=== PATIENT | female | born 1975 | race Caucasian/White ===

== ENCOUNTER 2024-01-26 12:12 | Emergency (ER) | payer OTHER ==
[2024-01-26 12:28] VITALS: RESP 18; BMI 31.0
[2024-01-26] MEDS ORDERED: ONDANSETRON *ODT* 4 MG TABLET ONE (12:34)
[2024-01-26] MEDS: ONDANSETRON *ODT* 4 MG TABLET SL ONE (12:35)
[2024-01-26] MEDS ORDERED: FAMOTIDINE 20 MG/50 ML IVPB 20 MG/50 ML MG IVPB ONE (13:22)
[2024-01-26] MEDS ORDERED: ACETAMINOPHEN INJECTION 100 ML IVPB ONE (13:22)
[2024-01-26 13:32] LABS: HEMATOCRIT 46.7 % (32.4-45.2); HEMOGLOBIN 15.5 G/dL (10.7-15.3); MCHC 33.3 g/dl (32.0-36.0); MEAN CELL VOLUME 93.2 fl (80-96); MEAN PLT VOLUME 8.8 fl (7.5-11.1); PLATELET COUNT 193.9 10^3/uL (134-434); RBC 5.01 10^6/uL (3.60-5.2); RDW 13.6 % (11.6-15.6); WHITE BLOOD COUNT 7.7 10^3/uL (4.0-10.8)
[2024-01-26 13:35] LABS: HCG,QUALITATIVE URINE Negative
[2024-01-26] MEDS: SODIUM CHLORIDE 0.9% 500 ML INFUS.BAG IV ONE ×2 (13:35→15:49)
[2024-01-26] MEDS: ACETAMINOPHEN 1000 MG/100 ML BAG IVPB ONE (13:38)
[2024-01-26 13:42] LABS: ALBUMIN 4.4 g/dl (3.4-5.0); BILIRUBIN,TOTAL 1.1 mg/dl (0.2-1); CALCIUM 9.5 mg/dl (8.5-10.1); CREATININE 0.7 mg/dl (0.6-1.3); MAGNESIUM 1.9 mg/dL (1.8-2.4); PLATELET ESTIMATE ADEQUATE; POTASSIUM 4.2 mmol/L (3.5-5.1); TOT PROT 6.8 g/dl (6.4-8.2)
[2024-01-26] MEDS: FAMOTIDINE 20 MG/50 ML IVPB 20 MG/50 ML MG IVPB ONE (13:58)
[2024-01-26 15:48] VITALS: BP 105/74; PULSE 91; TEMP 99.3
== END 2024-01-26 16:28 | disposition home or self-care (01) ==
LOC: FER 12:12
PROC: 3E033GC Introduction of Other Therapeutic Substance into Peripheral Vein, Percutaneous Approach (ICD-10-PCS; principal; 2024-01-26)
PROC: 3E033NZ Introduction of Analgesics, Hypnotics, Sedatives into Peripheral Vein, Percutaneous Approach (ICD-10-PCS; 2024-01-26)
DX: B34.9 Viral infection, unspecified (principal); R11.2 Nausea with vomiting, unspecified; R10.31 Right lower quadrant pain; R10.32 Left lower quadrant pain
CPT/HCPCS: 36415; 74177-TC; 80053; 81003; 83690; 83735; 84100; 84703; 85027; 87086; 99285-25; J0131; Q0162; Q9967